=== PATIENT | male | born 1960 | race Caucasian/White ===

== ENCOUNTER 2020-11-01 01:40 | Emergency (ER) | payer OTHER, SELFPAY ==
[~2020-11-01] VITALS: Ht 174.8 cm; Wt 125.6 kg
[~2020-11-01 01:40] MED LIST: ACET-1182 PO; FURO-570 PO; MULT-2253 PO; PROP20TA29 PO; SPIR50TA PO; THIA100T45 PO
--- NOTE | 2020-11-01 01:40 | NUR ---
PT FELI HAROS. TAKEN TO BED 4
--- NOTE | 2020-11-01 01:48 | NUR ---
Dr. Scott examining patient.
[2020-11-01] MEDS ORDERED: KETOROLAC 30 MG/ML VIAL IM ONE (01:55)
[2020-11-01] MEDS ORDERED: LORazepam 1 MG TAB PO ONE (01:55)
[2020-11-01 02:00] VITALS: BP 130/60
--- NOTE | 2020-11-01 02:00 | NUR ---
PT BIBA ALS FOR C/C ABDOMINAL PAIN. PT WAS PICKED UP [address] THE [address] FROM [facility] AFTER BEING DISCHARGED. PT REPORTING HE CALLED "BECAUSE THEY WOULDNT DO ANYTHING FOR ME." VS: 117/64, HR 97, O2 100% R.A. PT NOTED WITH LARGE ABDOMINAL HERNIA. SKIN INTACT. PT REPORTS "I GOT MY STOMACH DRAINED LAST WEEK TOO." DENIES N/V/D, FEVER, CHILLS, CP OR SOB. MED HX: ASCITES, CIRRHOSIS, ARTHRITIS ALLERGIES: NKA
--- NOTE | 2020-11-01 02:02 | NUR ---
LAB AT BEDSIDE.
--- NOTE | 2020-11-01 02:05 | NUR ---
PT REPORTS DRINKING 12 PACK OVER THE LAST 2 DAYS MIXED WITH VODKA.
--- NOTE | 2020-11-01 02:18 | NUR ---
PT TAKEN TO CT VIA [facility]MEGAN.
[2020-11-01 02:22] LABS: BASOPHILS % (AUTO) 0.6 % (0.0-2.0); EOSINOPHILS % (AUTO) 0.4 % (0.0-4.0); HEMATOCRIT 30.1 % (36-52); HEMOGLOBIN 9.8 g/dL (12.0-18.0); LYMPHOCYTES # (AUTO) 1.4 K/uL (2.0-11.5); MEAN CORPUSCULAR HEMOGLOBIN 30 pg (27-31); MEAN CORPUSCULAR HGB CONC 33 g/dL (33-37); MEAN CORPUSCULAR VOLUME 92.7 fL (80-94); MONOCYTES # (AUTO) 0.2 K/uL (0.8-1.0); MONOCYTES % (AUTO) 6.1 % (1.7-9.3); NEUTROPHILS # (AUTO) 2.1 K/uL (1.8-7.7); NEUTROPHILS % (AUTO) 56.9 % (42.2-75.2); PLATELET COUNT (AUTO) 67 K/uL (140-450); RED BLOOD CELL COUNT(AUTO) 3.25 MIL/uL (4.20-6.10); RED CELL DISTRIBUTION WIDTH 18.6 % (11.6-13.7); WHITE BLOOD COUNT (AUTO) 3.8 K/uL (4.8-10.8)
--- NOTE | 2020-11-01 02:30 | NUR ---
PT RETURNED FROM CT.
[2020-11-01 02:37] LABS: ANION GAP 16.3 (8-16); CARBON DIOXIDE 24.1 mmol/L (21-32); CREATININE 0.8 mg/dL (0.6-1.3); POTASSIUM 3.4 mmol/L (3.5-5.1); TOTAL BILIRUBIN 1.1 mg/dL (0.0-1.0)
--- NOTE | 2020-11-01 03:00 | NUR ---
PT UNABLE TO URINATE AT THIS TIME. BEDSIDE URINAL PROVIDED.
--- NOTE | 2020-11-01 03:40 | NUR ---
PT PROVIDED URINE SAMPLE VIA URINAL, SENT TO LAB.
[2020-11-01 03:41] LABS: APPEARANCE,URINE CLEAR (CLEAR); BILIRUBIN,URINE 1+ (NEGATIVE); BLOOD, URINE TRACE-I (NEGATIVE); COLOR,URINE YELLOW (YELLOW); LEUKOCYTE ESTERASE ,URINE NEGATIVE (NEGATIVE); NITRITE, URINE NEGATIVE (NEGATIVE); UGLUCOSE NEGATIVE (NEGATIVE)
--- NOTE | 2020-11-01 03:45 | NUR ---
PT NOTED WITH BM. PERINEAL CARE PROVIDED. NEW DIAPER PLACED. WARM BLANKET GIVEN.
[2020-11-01 03:46] LABS: RBC,URINE 0-5 /HPF (0-5); WBC,URINE 0-5 /HPF (0-5)
--- NOTE | 2020-11-01 04:30 | NUR ---
ERMD AT BEDSIDE.
[2020-11-01 04:59] VITALS: BP 133/64
--- NOTE | 2020-11-01 05:00 | NUR ---
Patient discharged with v/s stable. Written and verbal after care instructions given and explained. Patient verbalized understanding. Wheel Chair Assisted with steady gait. All questions addressed prior to discharge. Advised to follow up with PMD. PT REFUSED HOMELESS INFORMATION PACKET AND FOOD. PROVIDED TAXI VOUCHER FOR TRANSPORTATION.
== END 2020-11-01 05:00 | disposition home or self-care (01) ==
LOC: MED 01:40
DX: K43.9 Ventral hernia without obstruction or gangrene (principal); R18.8 Other ascites; I10 Essential (primary) hypertension; Z86.73 Personal history of transient ischemic attack (TIA), and cerebral infarction without residual deficits; Z79.899 Other long term (current) drug therapy; Z98.890 Other specified postprocedural states
CPT/HCPCS: 36415; 74176; 80053; 81001; 83690; 85025; 96372; 99284; J1885

== ENCOUNTER 2020-11-01 09:25 | Emergency (ER) | payer OTHER, SELFPAY ==
[~2020-11-01] VITALS: Ht 172.7 cm; Wt 125.6 kg
--- NOTE | 2020-11-01 09:25 | NUR ---
Neftali EDMOND via gurney to bed 07.
[2020-11-01 09:32] VITALS: BP 113/65
--- NOTE | 2020-11-01 09:32 | NUR ---
60 Y/O MALE C/O ABD PAIN TO HERNIA AREA. PER EMS PT IS HOEMLESS, ETOH AND WAS SEEN HERE THIS AM FOR SIMILAR SYMPTOMS. STATES 10/10 PAIN. MEDHX: ASCITES, CIRRHOSIS, ARTHRITIS NKA
--- NOTE | 2020-11-01 11:48 | NUR ---
Patient discharged with v/s stable. Written and verbal after care instructions given and explained. Patient alert, oriented and verbalized understanding of instructions. Wheel Chair Assisted with to home. All questions addressed prior to discharge. ID band removed. Patient advised to follow up with PMD.NO Rx given. Patient educated on indication of medication including possible reaction and side effects. Opportunity to ask questions provided and answered.FOOD GIVEN AND BUS PASS PT HAS APPROPRIATE ATTIRE
[2020-11-01 11:50] VITALS: BP 111/62
--- NOTE | 2020-11-01 11:54 | NUR ---
HOMELESS PT WAIVER SIGNATURE
== END 2020-11-01 11:58 | disposition home or self-care (01) ==
LOC: MED 09:25
DX: R18.8 Other ascites (principal); I10 Essential (primary) hypertension; Z79.899 Other long term (current) drug therapy; Z86.73 Personal history of transient ischemic attack (TIA), and cerebral infarction without residual deficits; Z98.890 Other specified postprocedural states; Z59.0 Homelessness
CPT/HCPCS: 99283

== ENCOUNTER 2020-11-01 23:40 | Emergency (ER) | payer OTHER ==
[~2020-11-01] VITALS: Ht 172.7 cm; Wt 125.6 kg
[2020-11-01 23:48] VITALS: BP 111/62
--- NOTE | 2020-11-01 23:48 | NUR ---
FELI MCKEON TAKEN TO BED #11
--- NOTE | 2020-11-02 00:08 | NUR ---
FELI FROM [facility] FROM [facility] C/O CHRONIC ABD PAIN. PER EMS PT SEEN WITH ALCOHOL ON HIS PERSON. MEDHX- ETOH ABUSE, ASCITES, HTN, LIVER CIRROHIS CHRIS
--- NOTE | 2020-11-02 00:14 | NUR ---
pt has eyes closed, equal rise and fall of chest wall. vss. pt in stable condition. all needs met at this time. pt given a warm blanket. bed locked in lowest position, side rails x2.
--- NOTE | 2020-11-02 01:51 | NUR ---
assisted pt into clean clothes. pt given a meal bag, sitting up in bed eating.all needs met at this time.
--- NOTE | 2020-11-02 02:28 | NUR ---
offered pt taxi to get to destination. pt refused stated he is not leaving. stated he has a right to stay on bed. explained to pt he has been discharged, pt began yelling. security called.
--- NOTE | 2020-11-02 02:29 | NUR ---
pt refused to sign all paperwork.
[2020-11-02 02:32] VITALS: BP 111/62
--- NOTE | 2020-11-02 02:32 | NUR ---
Patient discharged with v/s stable. Written and verbal after care instructions given and explained. Patient verbalized understanding. Ambulatory with steady gait. All questions addressed prior to discharge. Advised to follow up with PMD. PT REFUSED TO SIGN DOCUMENTION. LEFT WITHOUT PAPERWORK.
== END 2020-11-02 02:32 | disposition home or self-care (01) ==
LOC: MED 23:40
DX: K43.9 Ventral hernia without obstruction or gangrene (principal); F10.20 Alcohol dependence, uncomplicated; I10 Essential (primary) hypertension; F17.210 Nicotine dependence, cigarettes, uncomplicated; Z86.73 Personal history of transient ischemic attack (TIA), and cerebral infarction without residual deficits; Z79.899 Other long term (current) drug therapy
CPT/HCPCS: 99281; 99283